=== PATIENT | female | born 1940 | race Caucasian/White ===

== ENCOUNTER 2016-11-14 17:33 | Emergency (ER) | payer MEDICARE ==
[~2016-11-14] VITALS: Ht 165.1 cm; Wt 100.7 kg
[2016-11-14] MEDS ORDERED: HYDROcodone/APAP 5/325 TABLET PO ONE (19:00)
[2016-11-14] MEDS ORDERED: SODIUM CHLORIDE 0.9% 1,000ML IVBOLUS ONE (19:00)
[2016-11-14] MEDS ORDERED: HYDROcodone/APAP 5/325 TABLET ONE (19:04)
[2016-11-14 19:16] LABS: BLOOD UREA NITROGEN 50 mg/dL (7-18)
[2016-11-14] MEDS ORDERED: GLYB5TAB3 PO (19:30)
[2016-11-14] MEDS ORDERED: ZOLP10TA PO (19:30)
[2016-11-14] MEDS ORDERED: LEVO100T5 PO (19:30)
[2016-11-14] MEDS ORDERED: AMLO10TA4 PO (19:30)
[2016-11-14] MEDS ORDERED: GABA300C10 PO (19:30)
[2016-11-14] MEDS ORDERED: ATOR80TA75 PO (19:30)
[2016-11-14] MEDS ORDERED: FURO20TA3 PO (19:31)
[2016-11-14 21:16] VITALS: BP 146/59
== END 2016-11-14 21:17 | disposition home or self-care (01) ==
LOC: ED 18:28
DX: H60.311 Diffuse otitis externa, right ear (principal); I12.9 Hypertensive chronic kidney disease with stage 1 through stage 4 chronic kidney disease, or unspecified chronic kidney disease; E11.22 Type 2 diabetes mellitus with diabetic chronic kidney disease; N18.9 Chronic kidney disease, unspecified; E11.65 Type 2 diabetes mellitus with hyperglycemia; J44.9 Chronic obstructive pulmonary disease, unspecified; Z90.49 Acquired absence of other specified parts of digestive tract; Z90.710 Acquired absence of both cervix and uterus; Z87.891 Personal history of nicotine dependence
CPT/HCPCS: 36415; 70450; 80048; 82040; 85025; 85651; 86141; 96360; 96361; 99285; J7030